=== PATIENT | female | born 1995 | race Asian ===

== ENCOUNTER 2016-04-23 02:37 | Emergency (ER) | payer OTHER ==
--- NOTE | 2016-04-23 03:53 | ED ---
Tod Sanders Benjamin, scribed for Robb Smart MD on 04/23/16 at 0246 . Substance Abuse/Use - HPI Summary HPI Summary: 21yo female BIB EMS for etoh intoxication. Per friend, pt had alcoholic beverages tonight and started vomiting. Full HPI unavailable, level 5 caveat. - History Of Current Complaint Stated Complaint: ALCOHOL CONSUMPTION Hx Obtained From: EMS ?: No Ingestion History: Type/Name Of Drug - ETOH Overdose Characteristics: Oral Timing Of Abuse: Binge Use Severity Initially: Moderate Severity Currently: Moderate - Allergies/Home Medications Allergies/Adverse Reactions: Allergies Allergy/AdvReac Type Severity Reaction Status Date / Time Unable to Obtain Allergy Verified 01/19/15 02:39 PMH/Surg Hx/FS Hx/Imm Hx - Immunization History Date of Tetanus Vaccine: unknown Date of Influenza Vaccine: unknown - Family History Known Family History: Positive: Unknown - LEVEL 5 CAVEAT secondary to EtOH intoxication - Social History Alcohol Use: unknown Hx Substance Use: No Substance Use Type: Reports: None Substance Use Comment - Amount & Last Used: unknown. Smoking Status (MU): Unknown if Ever Smoked - LEVEL 5 CAVEAT secondary to EtOH intoxication Review of Systems - ROS Summary Review of Systems Summary: LEVEL 5 CAVEAT secondary to EtOH intoxication Neurological: Other - ETOH All Other Systems Reviewed And Are Negative: Yes Physical Exam Triage Information Reviewed: Yes Vital Signs On Initial Exam: Initial Vitals BP 95/53 04/23/16 02:48 Vital Signs Reviewed: Yes Appearance: Positive: Well-Appearing, No Pain Distress Skin: Positive: Warm Eyes: Positive: BEST ENT: Positive: Hearing grossly normal Neck: Positive: Supple Respiratory/Lung Sounds: Positive: Clear to Auscultation, Breath Sounds Present Cardiovascular: Positive: Normal Abdomen Description: Positive: Nontender, Soft Bowel Sounds: Positive: Present Musculoskeletal: Positive: Strength/ROM Intact Neurological: Positive: Sensory/Motor Intact Diagnostics - Vital Signs Vital Signs Temp Pulse Resp BP Pulse Ox 04/23/16 03:00 63 97 04/23/16 02:50 97.2 F 60 16 100/56 98 04/23/16 02:49 66 95 04/23/16 02:48 95/53 - Laboratory Lab Results: Lab Results 04/23/16 Range/Units 03:04 Beta HCG, Quant < 0.60 mIU/mL Serum Alcohol Pending Lab Statement: Any lab studies that have been ordered have been reviewed, and results considered in the medical decision making process. Course/Dx - Diagnoses Provider Diagnoses: Alcohol intoxication Discharge - Discharge Plan Condition: Stable Disposition: HOME Patient Education Materials: Alcohol Intoxication (ED) Referrals: THERESE Guzman [Primary Care Provider] - The documentation as recorded by the Tod livingston Benjamin accurately reflects the service I personally performed and the decisions made by me, Robb Smart MD.
[2016-04-23 03:58] LABS: Alcohol 182 mg/dL (<10)
[2016-04-23 06:37] VITALS: BP 106/48
== END 2016-04-23 06:33 | disposition home or self-care (01) ==
LOC: ED 02:37
DX: F10.129 Alcohol abuse with intoxication, unspecified (principal); Y90.6 Blood alcohol level of 120-199 mg/100 ml
CPT/HCPCS: 36415; 80320; 84702; G0480